=== PATIENT | female | born 1970 | race Caucasian/White ===

== ENCOUNTER 2016-12-15 14:23 | Inpatient (IN) | payer OTHER ==
[~2016-12-15] VITALS: Ht 172.7 cm; Wt 106.6 kg
[2016-12-15] MEDS ORDERED: VENTAER INH (14:38)
[2016-12-15] MEDS ORDERED: SYMB16INH INH (14:38)
[2016-12-15] MEDS ORDERED: MONT10TA2 PO (14:38)
[2016-12-15] MEDS ORDERED: FLUTISP (14:38)
[2016-12-15] MEDS ORDERED: NS 1,000 ML IV ONE (15:30)
[2016-12-15 16:16] LABS: BASO % 0.1 % (0.0-1.0); EOS # 0.1 10^3/uL (0.0-0.50); EOS % 0.7 % (0.0-3.0); IMMATURE GRANULOCYTE % 0.3 % (0-0); LYMPH # 1.6 10^3/uL (1.5-4.5); LYMPH % 22.3 % (24.0-44.0); MEAN CORPUSCULAR HEMOGLOBIN 30.8 pg (27.0-33.0); MEAN CORPUSCULAR HGB CONC 32.8 g/dl (32.0-36.5); MEAN CORPUSCULAR VOLUME 94.2 fl (80.0-96.0); MONO # 0.4 10^3/uL (0.0-0.8); MONO % 4.8 % (0.0-5.0); NEUTROPHILS # 5.3 10^3/uL (1.8-7.7); NEUTROPHILS % 71.8 % (36.0-66.0); PLATELET COUNT, AUTOMATED 239 10^3/uL (150-450); RED CELL DISTRIBUTION WIDTH 12.7 % (11.5-14.5); WHITE BLOOD COUNT 7.4 10^3/uL (4.0-10.0)
[2016-12-15 16:26] LABS: INR 0.92
[2016-12-15 16:40] LABS: CONTROL LINE MONO RF C INT CTR LINE PRESENT
[2016-12-15 16:49] LABS: ALBUMIN/GLOBULIN RATIO 0.87 (1.00-1.93); ALKALINE PHOSPHATASE 82 U/L (45-117); ALT/SGPT 47 U/L (12-78); ANION GAP 5 MEQ/L (8-16); AST/SGOT 27 U/L (7-37); BILIRUBIN,DIRECT 0.2 MG/DL (0.0-0.2); BILIRUBIN,TOTAL 0.7 MG/DL (0.2-1.0); BLOOD UREA NITROGEN 9 MG/DL (7-18); CARBON DIOXIDE LEVEL 30 MEQ/L (21-32); CHLORIDE LEVEL 103 MEQ/L (98-107); CREATININE FOR GFR 0.87 MG/DL (0.55-1.02); GLOMERULAR FILTRATION RATE > 60.0 (>58); GLUCOSE, FASTING 88 MG/DL (70-105); POTASSIUM SERUM 3.6 MEQ/L (3.5-5.1); SODIUM LEVEL 138 MEQ/L (136-145); TOTAL PROTEIN 8.6 GM/DL (6.4-8.2)
[2016-12-15] MEDS ORDERED: ASPI325T PO (18:31)
[2016-12-15] MEDS ORDERED: ACETAMINOPHEN TAB 650MG DOSE (2X325MG) PO PRN (21:00)
[2016-12-15] MEDS ORDERED: ONDANSETRON 4MG/2ML VIAL (J2405) IV PRN (21:00)
[2016-12-15 21:35] VITALS: BP 126/66
[2016-12-15] MEDS: MONTELUKAST 10 MG TAB PO SCH (22:01)
[2016-12-15] MEDS: SYMBICORT 160/4.5MCG INHALER 6GM INH SCH (23:00)
[2016-12-15 23:59] VITALS: BP 138/73
[2016-12-16 04:00] VITALS: BP 124/67
[2016-12-16 06:09] LABS: MEAN CORPUSCULAR HEMOGLOBIN 30.8 pg (27.0-33.0); MEAN CORPUSCULAR HGB CONC 32.6 g/dl (32.0-36.5); MEAN CORPUSCULAR VOLUME 94.5 fl (80.0-96.0); PLATELET COUNT, AUTOMATED 219 10^3/uL (150-450); RED CELL DISTRIBUTION WIDTH 12.7 % (11.5-14.5); WHITE BLOOD COUNT 5.7 10^3/uL (4.0-10.0)
[2016-12-16 06:24] LABS: ANION GAP 7 MEQ/L (8-16); BLOOD UREA NITROGEN 9 MG/DL (7-18); CALCIUM LEVEL 8.2 MG/DL (8.5-10.1); CARBON DIOXIDE LEVEL 27 MEQ/L (21-32); CHLORIDE LEVEL 107 MEQ/L (98-107); CREATININE FOR GFR 0.74 MG/DL (0.55-1.02); GLOMERULAR FILTRATION RATE > 60.0 (>58); GLUCOSE, FASTING 92 MG/DL (70-105); POTASSIUM SERUM 3.8 MEQ/L (3.5-5.1); SODIUM LEVEL 141 MEQ/L (136-145)
[2016-12-16] MEDS: HEPARIN SOD (PORCINE) 5000 UNITS/ML VIAL SC SCH ×3 (06:26→20:57)
[2016-12-16 07:30] VITALS: BP 148/63
[2016-12-16] MEDS: PANTOPRAZOLE 40MG TAB (PROTONIX) PO SCH (09:11)
[2016-12-16 12:20] VITALS: BP 136/76
[2016-12-16 16:00] VITALS: BP 119/69
[2016-12-16 20:00] VITALS: BP 124/65
[2016-12-16] MEDS: SYMBICORT 160/4.5MCG INHALER 6GM INH SCH (20:40)
[2016-12-16] MEDS: MONTELUKAST 10 MG TAB PO SCH (21:02)
--- NOTE | 2016-12-16 22:17 | HPE ---
DATE OF ADMISSION: 12/15/2016 CHIEF COMPLAINT: Spleen hematoma. HISTORY OF PRESENT ILLNESS: The patient is a 46-year-old female who presented to urgent care in [place] yesterday complaining of pain in her left chest and left upper abdomen, associated with some difficulty breathing. She was sent to [facility] for a CTA of the chest to rule out a pulmonary embolism (PE). On CT scan, they found a hematoma of the liver; therefore, I was called for a phone consult with the physician human resource assistant (PA). He mentioned that she has had this pain since Tuesday evening, got a little bit better with aspirin overnight, and was doing well during the day on Tuesday and then got worse again Tuesday evening. It got to the point where yesterday morning, she was in so much pain when she woke up she had to take the aspirin just to get out of bed. Because of this, she came in for evaluation. She denies any specific trauma to the area. 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 She has been bumped by cows and bumped by other things on the farm, but no specific instances where she has resulted in any bruising or severe pains. No previous trauma to the area. No recent travel. No recent illnesses. In the emergency room (ER), her labs were normal, vitals were stable. She was admitted to monitor her for at least 24-48 hours to keep track of her hemoglobin levels and see if this hematoma is going to change. This morning, just being on slight bedrest as opposed to home working on the farm, she is already feeling better. The chest pain is gone. She has a little bit of discomfort in the left upper abdomen but is much improved. No problems with nausea or vomiting. No fevers, sweats or chills. No changes in bowel movements or problems urinating. No previous surgeries to the upper abdomen. PAST MEDICAL HISTORY: Asthma. PAST SURGICAL HISTORY: Lumbar laminectomy. Right anterior cruciate ligament anterior cruciate ligament (ACL). Tubal ligation. Sinus surgery. ALLERGIES: LATEX. HOME MEDICATIONS: Please see med rec. SOCIAL HISTORY: Denies drug, alcohol, tobacco abuse. FAMILY HISTORY: Noncontributory. REVIEW OF SYSTEMS: Pertinent positives and negatives as stated in the history of the present illness. PHYSICAL EXAMINATION: Alert and oriented times three. No acute distress. Vital Signs: Temperature 97.6, pulse 80, respirations 20, blood pressure 124/67, pulse oximetry 96% on room air. HEENT: Pupils equally round and react to light and accommodation. Heart: S1, S2, regular rate and rhythm. Lungs: Clear to auscultation bilaterally. Abdomen: Soft, tender to palpation in left upper quadrant. No rebound, guarding or rigidity. Bowel sounds positive. Extremities: No clubbing, cyanosis, or edema. LABORATORY DATA: White count 5.7, hemoglobin 15.3 yesterday, 13.4 today, platelets 219. IMAGING STUDIES: CTA shows that there is a hematoma in the liver measuring 8.2 x 7.5 cm with an overall splenic size of 13 cm. ASSESSMENT AND PLAN: The patient is a 46-year-old female currently with what is likely traumatic grade 2 splenic subcapsular hematoma secondary to likely hit by a cow. Recommendation at this time is to monitor her for another 24 hours, keep track of her hemoglobin and vital signs, and she will likely be able to be discharged home in the morning as long as she is continuing to do well, and I recommended that she stay away from any type of contact activity or any situations where she could result in significant trauma to the abdomen over the next 2 weeks. She understands the risks involved. She is also aware that if she does go home and develop any signs of sudden onset abdominal pain, shortness of breath, dizziness, lightheadedness, any symptoms that are suspicious for possible bleeding that she will call and return to the emergency room immediately.
[2016-12-16 23:59] VITALS: BP 118/57
[2016-12-17 04:00] VITALS: BP 130/71
[2016-12-17] MEDS: HEPARIN SOD (PORCINE) 5000 UNITS/ML VIAL SC SCH (06:15)
[2016-12-17 08:00] VITALS: BP 119/78
[2016-12-17] MEDS: PANTOPRAZOLE 40MG TAB (PROTONIX) PO SCH (08:40)
--- NOTE | 2016-12-18 16:56 | DSES ---
DATE OF ADMISSION: 12/15/2016 DATE OF DISCHARGE: 12/17/2016 ADMISSION DIAGNOSIS: Splenic hematoma. DISCHARGE DIAGNOSIS: Splenic hematoma. HOSPITAL COURSE: The patient is a 46-year-old female who had left upper quadrant abdominal pain starting last Tuesday, got progressively worse over the first few days of this week. She went and had a CT scan done on 12/15/2016, which showed a splenic hematoma. 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 She was monitored for a couple of days in the hospital, she had normal vital signs, her hemoglobin was stable, she was tolerating a regular diet, within the first 24 hours of resting her pain was dramatically improved, all of her chest pain was gone. 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 Today she is even feeling better and she is planning to go home today. She will be discharged home today without any special medications. She will just use Tylenol and Motrin as needed for pain. No need for any antibiotics. Recommendation is to avoid any heavy lifting or activities that could potentially result in any trauma and stay away from any heavy activity for at least the next 2 weeks. Afterwards she can resume normal activities and followup with me in the office if there is any questions or concerns about anything. She was also advised if she has any sudden onset of pain, any fevers, or any changes in her breathing that she should return to the emergency room immediately for evaluation.
== END 2016-12-17 10:30 | disposition home or self-care (01) | DRG 663 ==
LOC: M ED 14:23 → M ED INP 20:46 → M PCU 21:23
PROVIDERS: ADMIT Surgery; ATTEND Surgery
DX: S36.021A Major contusion of spleen, initial encounter (principal); S36.112A Contusion of liver, initial encounter; J45.909 Unspecified asthma, uncomplicated; Z91.040 Latex allergy status; W55.22XA Struck by cow, initial encounter; Y92.79 Other farm location as the place of occurrence of the external cause; Y99.8 Other external cause status; Z79.51 Long term (current) use of inhaled steroids; Z79.82 Long term (current) use of aspirin; Z79.899 Other long term (current) drug therapy; Y93.K9 Activity, other involving animal care

== ENCOUNTER → 2016-12-15 | Outpatient (CLI) | payer OTHER ==
[~2016-12-15] MED LIST: ACETAMINOPHEN TAB 650MG DOSE (2X325MG) PO PRN; ASPI325T PO; FLUTISP; HEPARIN SOD (PORCINE) 5000 UNITS/ML VIAL SC SCH; ISOVUE-370 76% 100ML VIAL (Q9967) As Ordered ONE; KETOROLAC 30 MG/ML VIAL (J1885) IV PRN; MOM 30ML SUSPENSION UDC PO PRN; MONT10TA2 PO; NORCO, ANEXSIA 5/325MG TABLET (HYDROcodone/ACETAMINOPHEN) PO PRN; ONDANSETRON 4MG/2ML VIAL (J2405) IV PRN; PANTOPRAZOLE 40MG TAB (PROTONIX) PO SCH; SENOKOT S TAB PO SCH; SYMB16INH INH; VENTAER INH
--- NOTE | 2016-12-15 19:56 | REP ---
CT pulmonary angiogram: With IV contrast. History: Chest pain. Comparison studies: No comparison study. Contrast dose: 75 cc's of Isovue [address] technique: Helical scanning is acquired and overlapping 1.5 mm and contiguous 3 mm axial images are reformatted. In addition, a 3-D work station is deployed to generate thick slab maximum intensity projection images in sagittal and coronal imaging projections. CT pulmonary angiographic findings: There is good opacification of the pulmonary arterial tree. There is no CT evidence of pulmonary embolism. Thoracic aorta enhances homogeneously and is normal in course and caliber. No pleural or pericardial effusion is seen. No hilar or mediastinal mass or adenopathy is observed. Maximum intensity projection images are unremarkable. Lung window settings demonstrate no evidence of infiltrate, mass, or atelectasis. Bone window settings show no bony destructive lesion. There is an old healed rib fracture on the right. Images through the upper abdomen demonstrate a fluid collection at the posterior periphery of the spleen consistent with a subcapsular hematoma. This measures 8.2 cm in oblique anteroposterior by 2.8 cm in transverse dimension by 7.5 cm in craniocaudal span. The spleen is otherwise homogeneous in texture and at the upper limits of normal in size, 13.0 cm. Liver is intact. No adrenal lesion is seen. The visualized upper abdominal structures are otherwise unremarkable. Impression: 1. No CT evidence of pulmonary embolism. 2. 8.2 x 2.8 x 7.5 cm subcapsular hematoma posterolateral aspect of the spleen. Borderline spleen size, 13 cm. 3. Old healed right-sided rib fracture. Signed by Guillermo Acuna MD 12/16/2016 07:38 A
== END ==
LOC: M RAD 12:39
PROVIDERS: ATTEND Physician Assistant
DX: R07.9 Chest pain, unspecified (principal)